=== PATIENT | male | born 1995 | race Caucasian/White ===

== ENCOUNTER 2016-10-25 07:42 | Emergency (ER) | payer OTHER ==
[~2016-10-25] VITALS: Ht 175.3 cm; Wt 83.1 kg
[~2016-10-25 07:42] MED LIST: CARAFATE100 MG/ML PO; CLARITIN10 M3 PO; FLONASE16 G1 BOTH NARES; NASACORT AQ16.5 GM BOTH NARES; OMEPRAZOLE20 M2 PO; PREVACID15 MG PO; ZANTAC150 MG PO
[2016-10-25 08:16] LABS: HEMATOCRIT 47.6 % (38.0-50.0); MCH 27.9 PG (29.0-34.0); MCHC 34.5 G/DL (30.0-36.0); MCV 81.1 FL (86-99); MEAN PLAT.VOLUME 11.3 uM^3 (9.0-12.4); PLATELET COUNT 147 K/uL (156-360); RBC DIS.WIDTH-CV 11.8 % (11.8-14.6); RBC DIS.WIDTH-SD 34.2 % (39-53); RED BLOOD COUNT 5.87 M/uL (4.00-5.50); WHITE BLOOD COUNT 8.5 K/uL (4.1-10.2)
[2016-10-25 08:36] LABS: ADD MIUA? YES; BILIRUBIN NEGATIVE; BLOOD NEGATIVE; COLOR YELLOW ((YELLOW)); GLUCOSE (STRIP) NEGATIVE; KETONES NEGATIVE; LEUKOCYTES NEGATIVE; NITRITE NEGATIVE; PROTEIN (STRIP) NEGATIVE; SPECIFIC GRAVITY 1.014 (1.000-1.030); UROBILINOGEN 0.2 MG/DL (0.2-1.0)
[2016-10-25] MEDS ORDERED: BENTYL10 MG PO ×2 (08:37→10:36)
[2016-10-25 08:38] LABS: CHLORIDE 103 mEq/L (99-109); POTASSIUM 3.5 mEq/L (3.7-5.4); SODIUM 137 mEq/L (136-147)
[2016-10-25 08:40] LABS: GLUCOSE 92 mg/dL (70-99)
[2016-10-25 08:41] LABS: ANION GAP 10 MEQ/L (2-14)
[2016-10-25 08:42] LABS: TOTAL BILIRUBIN 0.6 mg/dL (0.0-1.0)
[2016-10-25 08:43] LABS: ALKALINE PHOSPHATASE 103 IU/L (3-129)
[2016-10-25 08:44] LABS: GFR ESTIMATE (CALCULATED) > 59 mL/min/
[2016-10-25 08:45] LABS: UREA NITROGEN (BUN) 9 mg/dL (9-23)
[2016-10-25 08:47] LABS: LIPASE 53 U/L (1.0-51.0)
[2016-10-25 08:51] LABS: BACTERIA RARE /HPF; EPITHELIAL CELLS NONE SEEN /HPF; MUCUS TRACE /LPF; RED BLOOD CELLS 0-5 /HPF (0-5); UCUL ADDED? NO; WHITE BLOOD CELLS NONE SEEN /HPF (0-5)
[2016-10-25] MEDS ORDERED: ZOFRAN ODT4 MG PO (10:36)
[2016-10-25 10:48] VITALS: BP 128/82
== END 2016-10-25 10:50 | disposition home or self-care (01) ==
LOC: EME 07:42
DX: K80.20 Calculus of gallbladder without cholecystitis without obstruction (principal); M54.5 Low back pain; R19.7 Diarrhea, unspecified; F17.200 Nicotine dependence, unspecified, uncomplicated; R30.0 Dysuria; Z87.442 Personal history of urinary calculi
CPT/HCPCS: 71020; 74177; 80053; 81003; 83690; 85027; 99281; 99285; J1885; J2405; J7030

== ENCOUNTER 2017-02-16 08:03 | Day surgery (SDC) | payer OTHER ==
[~2017-02-16] VITALS: Ht 177.8 cm; Wt 78.0 kg
[~2017-02-16 08:03] MED LIST changes: +BENTYL10 MG PO; +OMEPRAZOLE40 M1 PO; +ZOFRAN ODT4 MG PO
[2017-02-16 08:35] VITALS: BP 103/63
[2017-02-16] MEDS ORDERED: IBUPROFEN600 MG PO (14:26)
[2017-02-16] MEDS ORDERED: COLACE100 MG PO (14:26)
[2017-02-16] MEDS ORDERED: PERCOCET 5/31 TABLET PO (14:26)
[2017-02-16 15:44] VITALS: BP 126/72
[2017-02-16 16:42] VITALS: BP 130/78
[2017-02-16 17:52] VITALS: BP 115/66
== END 2017-02-16 17:55 | disposition home or self-care (01) ==
LOC: SDC
PROC: 0FT44ZZ Resection of Gallbladder, Percutaneous Endoscopic Approach (ICD-10-PCS; principal; 2017-02-16)
DX: K80.10 Calculus of gallbladder with chronic cholecystitis without obstruction (principal); K66.0 Peritoneal adhesions (postprocedural) (postinfection); J45.20 Mild intermittent asthma, uncomplicated; K21.9 Gastro-esophageal reflux disease without esophagitis; F41.9 Anxiety disorder, unspecified; Z88.2 Allergy status to sulfonamides; F17.200 Nicotine dependence, unspecified, uncomplicated
CPT/HCPCS: 88304; J0330; J0690; J1100; J1170; J2175; J2250; J2405; J2765; J3010

== ENCOUNTER 2017-02-16 23:41 | Emergency (ER) | payer OTHER ==
[~2017-02-16] VITALS: Ht 180.3 cm; Wt 81.1 kg
[~2017-02-16 23:41] MED LIST changes: +COLACE100 MG PO; +IBUPROFEN600 MG PO; +PERCOCET 5/31 TABLET PO
[2017-02-17 01:39] LABS: ADD MIUA? NO; BILIRUBIN NEGATIVE; BLOOD NEGATIVE; COLOR STRAW ((YELLOW)); GLUCOSE (STRIP) NEGATIVE; KETONES NEGATIVE; LEUKOCYTES NEGATIVE; NITRITE NEGATIVE; PROTEIN (STRIP) NEGATIVE; SPECIFIC GRAVITY 1.006 (1.000-1.030); UCUL ADDED? NO; UROBILINOGEN 0.2 MG/DL (0.2-1.0)
[2017-02-17 02:00] LABS: EOSINOPHIL (%) 0.1 % (0-5); HEMATOCRIT 43.8 % (38.0-50.0); IMMATURE GRANULOCYTE (%) 0.6 % (0.0-0.7); IMMATURE GRANULOCYTE COUNT 0.1 K/uL; INSTRUMENT ABS NEUTROPHIL CT 9.7 K/uL; LYMPHOCYTE COUNT 1.5 K/uL (1.0-2.8); MCH 29.5 PG (29.0-34.0); MCHC 36.1 G/DL (30.0-36.0); MCV 81.9 FL (86-99); MEAN PLAT.VOLUME 11.5 uM^3 (9.0-12.4); MONOCYTE (%) 6.6 % (3-12); MONOCYTE COUNT 0.8 K/uL (0-0.8); NEUTROPHIL (%) 80.2 % (45-76); NEUTROPHIL COUNT 9.7 K/uL (1.8-6.4); PLATELET COUNT 147 K/uL (156-360); RBC DIS.WIDTH-CV 12.1 % (11.8-14.6); RED BLOOD COUNT 5.35 M/uL (4.00-5.50); WHITE BLOOD COUNT 12.1 K/uL (4.1-10.2)
[2017-02-17 02:10] LABS: CHLORIDE 107 mEq/L (99-109); POTASSIUM 4.5 mEq/L (3.7-5.4); SODIUM 139 mEq/L (136-147)
[2017-02-17 02:11] LABS: MAGNESIUM 1.9 mg/dL (1.3-2.7)
[2017-02-17 02:12] LABS: GLUCOSE 117 mg/dL (70-99)
[2017-02-17 02:14] LABS: ANION GAP 8 MEQ/L (2-14)
[2017-02-17 02:16] LABS: GFR ESTIMATE (CALCULATED) > 59 mL/min/ (58.99-99999)
[2017-02-17 02:17] LABS: UREA NITROGEN (BUN) 8 mg/dL (9-23)
[2017-02-17 03:11] VITALS: BP 128/82
== END 2017-02-17 03:12 | disposition home or self-care (01) ==
LOC: EME 23:41
PROVIDERS: Emergency Medicine
DX: R20.2 Paresthesia of skin (principal); M54.2 Cervicalgia; Z90.49 Acquired absence of other specified parts of digestive tract; Z98.890 Other specified postprocedural states; F41.9 Anxiety disorder, unspecified; N40.0 Benign prostatic hyperplasia without lower urinary tract symptoms; F17.200 Nicotine dependence, unspecified, uncomplicated; Z88.5 Allergy status to narcotic agent; Z88.2 Allergy status to sulfonamides
CPT/HCPCS: 72125; 80048; 81003; 83735; 84100; 85025; 93005; 99281; 99283